=== PATIENT | male | born 1995 | race Caucasian/White ===

== ENCOUNTER 2022-11-20 14:41 | Inpatient (IN) | payer MEDICAID ==
[~2022-11-20] VITALS: Ht 167.6 cm; Wt 60.8 kg
[2022-11-20 20:28] VITALS: BP 131/68
[2022-11-20] MEDS: LORazepam 2 MG TABLET PO PRN (20:32)
[2022-11-20 21:06] LABS: GLUCOMETER DEV NAME(LOC) POC.BV
[2022-11-21 04:58] VITALS: BP 131/68
[2022-11-21] MEDS: HALOPERIDOL 5 MG TABLET PO PRN ×2 (08:06→20:43)
[2022-11-21] MEDS: LORazepam 2 MG TABLET PO PRN ×2 (08:06→19:41)
[2022-11-21 08:35] VITALS: BP 122/78
[2022-11-21 08:43] LABS: BASOPHILS % (AUTO) 0.5 % (0.0-2.0); EOSINOPHILS % (AUTO) 1.4 % (1.0-6.0); HEMATOCRIT 40.9 % (41-53); HEMOGLOBIN 14.1 g/dL (13.5-17.5); LYMPHOCYTES % (AUTO) 31.6 % (22.0-44.0); MEAN CORPUSCULAR HEMOGLOBIN 30.3 pg (26.0-34.0); MEAN CORPUSCULAR HGB CONC 34.4 G/dL (31.0-37.0); MEAN CORPUSCULAR VOLUME 88 fL (80-100); MONOCYTES # (AUTO) 0.5 K/uL (0.1-1.0); NEUTROPHILS # (AUTO) 3.7 K/uL (1.8-7.7); NEUTROPHILS % (AUTO) 58.5 % (40.0-70.0); PLATELET COUNT (AUTO) 239 K/uL (150-450); RED BLOOD CELL COUNT(AUTO) 4.64 MIL/uL (4.50-5.90); RED CELL DISTRIBUTION WIDTH 14.1 % (11.5-14.5)
[2022-11-21 09:07] LABS: HEMOGLOBIN A1C 5.1 % (3.8-5.6)
[2022-11-21 09:12] LABS: ALANINE AMINOTRANSFERASE 32 U/L (12-78); ALBUMIN 3.9 g/dL (3.4-5.0); ALKALINE PHOSPHATASE 53 U/L (46-116); ANION GAP 7 mmol/L (8-16); ASPARTATE AMINOTRANSFERASE 19 U/L (15-37); BILIRUBIN,TOTAL 0.6 mg/dL (0.1-1.0); CALCIUM, TOTAL 8.8 mg/dL (8.8-10.5); CARBON DIOXIDE 29 mmol/L (22-29); CHLORIDE 103 mmol/L (98-107); CHOL/HDL RATIO 3.4 (4.2-7.3); CHOLESTEROL 135 mg/dL (131-200); CREATININE 0.72 mg/dL (0.60-1.30); FREE T4 (FREE THYROXINE) 1.56 ng/dL (0.76-1.46); GLOMERULAR FILTR. RATE CALC > 60 mL/min (>60); GLUCOSE,RANDOM 88 mg/dL (70-110); HDL CHOLESTEROL 40 mg/dL (40-60); LDL CHOL (CALC.) 82 mg/dL (0-130); POTASSIUM 3.1 mmol/L (3.5-5.1); SODIUM SERUM 139 mmol/L (136-145); THYROID STIMULATING HORMONE 2.19 uIU/mL (0.36-3.74); TOTAL PROTEIN, SERUM 7.8 g/dL (6.4-8.2); TRIGLYCERIDES 65 mg/dL (15-150); UREA NITROGEN, BLOOD 13 mg/dL (7-18)
[2022-11-21] MEDS ORDERED: BACITRACIN 28 GM OINTMENT TP PRN (09:15)
[2022-11-21] MEDS ORDERED: DOCUSATE SODIUM 100 MG CAPSULE PO PRN (09:15)
[2022-11-21] MEDS ORDERED: LOPERAMIDE HCL 2 MG CAPSULE PO PRN (09:15)
[2022-11-21] MEDS ORDERED: OMEPRAZOLE 20 MG CAPSULE PO PRN (09:15)
[2022-11-21] MEDS ORDERED: PETROLATUM,WHITE 28 GM JELLY TP PRN (09:15)
[2022-11-21] MEDS ORDERED: ACETAMINOPHEN 325 MG TABLET PO PRN (09:15)
[2022-11-21] MEDS ORDERED: CloNIDine HCL 0.1 MG TABLET PO PRN (09:15)
[2022-11-21] MEDS ORDERED: MAGNESIUM HYDROXIDE SUSPENSION 30 ML UDCUP PO PRN (09:15)
[2022-11-21] MEDS ORDERED: ALBUTEROL SULFATE HFA 90 MCG/PUFF 8 GM INHALER IH PRN (09:15)
[2022-11-21] MEDS ORDERED: MAG HYDROX/AL HYDROX/SIMETH ES 30 ML SUSPENSION UDCUP PO PRN (09:15)
[2022-11-21] MEDS ORDERED: ONDANSETRON HCL 4 MG TABLET PO PRN (09:15)
[2022-11-21] MEDS: IBUPROFEN 600 MG TABLET PO PRN ×2 (11:49→19:41)
[2022-11-21 20:15] VITALS: BP 111/72
[2022-11-21] MEDS: ZOLPIDEM TARTRATE 10 MG TABLET PO PRN (20:43)
[2022-11-22] MEDS ORDERED: POTASSIUM CHLORIDE 20 MEQ ER TABLET PO ONE
[2022-11-22] MEDS: HALOPERIDOL 5 MG TABLET PO PRN ×3 (05:33→15:05)
[2022-11-22] MEDS: LORazepam 2 MG TABLET PO PRN ×3 (05:34→15:05)
[2022-11-22 05:55] VITALS: BP 123/67
[2022-11-22] MEDS: IBUPROFEN 600 MG TABLET PO PRN ×2 (05:55→13:18)
[2022-11-22 08:10] LABS: APPEARANCE,URINE CLEAR (CLEAR); BILIRUBIN,URINE NEGATIVE (NEGATIVE); GLUCOSE, URINE (UA) NEGATIVE (NEGATIVE); KETONES,URINE NEGATIVE (NEGATIVE); LEUKOCYTE ESTERASE ,URINE NEGATIVE (NEGATIVE); NITRATE,URINE NEGATIVE (NEGATIVE); OCCULT BLOOD,URINE NEGATIVE (NEGATIVE); PH,URINE 6.5 (5.0-8.0); PROTEIN,URINE NEGATIVE (NEGATIVE); SPECIFIC GRAVITIY, URINE 1.008 (1.003-1.030); UROBILINOGEN,URINE <=1.0 mg/dL (<=1.0)
[2022-11-22 08:17] LABS: AMPHET/METH SCREEN,URINE NEGATIVE (NEGATIVE); BARBITURATE SCREEN, URINE NEGATIVE (NEGATIVE); BENZODIAZEPINES SCREEN,URINE NEGATIVE (NEGATIVE); CANNABINOID SCREEN,URINE POSITIVE (NEGATIVE); COCAINE SCREEN,URINE NEGATIVE (NEGATIVE); METHADONE SCREEN, URINE NEGATIVE (NEGATIVE); OPIATE SCREEN,URINE NEGATIVE (NEGATIVE); PHENCYCLIDINE SCREEN,URINE NEGATIVE (NEGATIVE)
[2022-11-22 08:51] VITALS: BP 121/70
[2022-11-22] MEDS: DIVALPROEX SODIUM 500 MG DR TABLET PO SCH (16:41)
[2022-11-22] MEDS: RisperiDONE 2 MG TABLET PO SCH (16:41)
[2022-11-22 20:33] VITALS: BP 114/81
[2022-11-22] MEDS: ZOLPIDEM TARTRATE 10 MG TABLET PO PRN (20:44)
[2022-11-23 04:41] VITALS: BP 119/97
[2022-11-23] MEDS: LORazepam 2 MG TABLET PO PRN ×3 (04:50→22:25)
[2022-11-23] MEDS: IBUPROFEN 600 MG TABLET PO PRN ×2 (04:51→22:25)
[2022-11-23] MEDS: HALOPERIDOL 5 MG TABLET PO PRN ×2 (04:51→22:25)
[2022-11-23] MEDS: DIVALPROEX SODIUM 500 MG DR TABLET PO SCH ×2 (09:14→16:47)
[2022-11-23] MEDS: RisperiDONE 2 MG TABLET PO SCH ×2 (09:14→16:47)
[2022-11-23 20:48] VITALS: BP 101/69
[2022-11-23] MEDS: ZOLPIDEM TARTRATE 10 MG TABLET PO PRN (21:45)
[2022-11-24] MEDS: HALOPERIDOL 5 MG TABLET PO PRN (04:44)
[2022-11-24] MEDS: LORazepam 2 MG TABLET PO PRN ×2 (04:44→20:49)
[2022-11-24] MEDS: IBUPROFEN 600 MG TABLET PO PRN ×2 (04:44→11:27)
[2022-11-24 08:15] VITALS: BP 113/70
[2022-11-24] MEDS: DIVALPROEX SODIUM 500 MG DR TABLET PO SCH ×2 (08:39→16:35)
[2022-11-24] MEDS: RisperiDONE 2 MG TABLET PO SCH (08:39)
[2022-11-24] MEDS ORDERED: LORazepam 2 MG/ML VIAL ONE (13:18)
[2022-11-24] MEDS ORDERED: DiphenhydrAMINE HCL 50 MG/ML VIAL ONE (13:18)
[2022-11-24] MEDS ORDERED: HALOPERIDOL LACTATE 5 MG/ML VIAL ONE (13:18)
[2022-11-24] MEDS ORDERED: HALOPERIDOL LACTATE 5 MG/ML VIAL IM ONE (13:45)
[2022-11-24] MEDS ORDERED: DiphenhydrAMINE HCL 50 MG/ML VIAL IM ONE (13:45)
[2022-11-24] MEDS ORDERED: LORazepam 2 MG/ML VIAL IM ONE (13:45)
[2022-11-24] MEDS: RisperiDONE 3 MG TABLET PO SCH (16:35)
[2022-11-24] MEDS: ZOLPIDEM TARTRATE 10 MG TABLET PO PRN (20:49)
[2022-11-24 21:03] VITALS: BP 113/69
[2022-11-25] MEDS: IBUPROFEN 600 MG TABLET PO PRN (00:47)
[2022-11-25] MEDS: LORazepam 2 MG TABLET PO PRN ×2 (05:43→16:25)
[2022-11-25] MEDS: RisperiDONE 3 MG TABLET PO SCH ×2 (08:54→16:24)
[2022-11-25] MEDS: DIVALPROEX SODIUM 500 MG DR TABLET PO SCH ×2 (08:54→16:24)
[2022-11-25 10:11] VITALS: BP 118/68
[2022-11-25] MEDS: HALOPERIDOL 5 MG TABLET PO PRN (16:25)
[2022-11-25] MEDS: ZOLPIDEM TARTRATE 10 MG TABLET PO PRN (20:10)
[2022-11-25 20:32] VITALS: BP 121/83
[2022-11-26] MEDS: HALOPERIDOL 5 MG TABLET PO PRN ×3 (01:19→16:39)
[2022-11-26] MEDS: LORazepam 2 MG TABLET PO PRN ×4 (01:19→17:50)
[2022-11-26] MEDS: IBUPROFEN 600 MG TABLET PO PRN ×2 (01:20→17:51)
[2022-11-26 01:21] VITALS: BP 128/78
[2022-11-26] MEDS: DIVALPROEX SODIUM 500 MG DR TABLET PO SCH ×2 (08:07→16:39)
[2022-11-26] MEDS: RisperiDONE 3 MG TABLET PO SCH ×2 (08:07→16:38)
[2022-11-26 08:12] VITALS: BP 118/76
[2022-11-26 17:31] LABS: GLUCOMETER DEV NAME(LOC) POC.BV
[2022-11-26 20:15] VITALS: BP 109/62
[2022-11-27] MEDS: DIVALPROEX SODIUM 500 MG DR TABLET PO SCH ×2 (08:01→16:07)
[2022-11-27] MEDS: RisperiDONE 3 MG TABLET PO SCH ×2 (08:01→16:07)
[2022-11-27 08:11] VITALS: BP 122/61
[2022-11-27] MEDS: IBUPROFEN 600 MG TABLET PO PRN (16:08)
[2022-11-27] MEDS: LORazepam 2 MG TABLET PO PRN (17:29)
[2022-11-27 20:03] VITALS: BP 126/62
[2022-11-27] MEDS: ZOLPIDEM TARTRATE 10 MG TABLET PO PRN (20:10)
[2022-11-28] MEDS: LORazepam 2 MG TABLET PO PRN ×2 (00:23→22:17)
[2022-11-28] MEDS: RisperiDONE 3 MG TABLET PO SCH ×2 (08:14→16:40)
[2022-11-28] MEDS: DIVALPROEX SODIUM 500 MG DR TABLET PO SCH ×2 (08:14→16:40)
[2022-11-28 08:44] VITALS: BP 116/63
[2022-11-28 20:10] VITALS: BP 121/77
[2022-11-28] MEDS: ZOLPIDEM TARTRATE 10 MG TABLET PO PRN (20:34)
[2022-11-29 05:41] VITALS: BP 123/67
[2022-11-29] MEDS: IBUPROFEN 600 MG TABLET PO PRN (05:43)
[2022-11-29] MEDS: LORazepam 2 MG TABLET PO PRN ×2 (06:04→16:08)
[2022-11-29] MEDS: RisperiDONE 3 MG TABLET PO SCH ×2 (08:05→16:08)
[2022-11-29] MEDS: DIVALPROEX SODIUM 500 MG DR TABLET PO SCH ×2 (08:05→16:08)
[2022-11-29 08:22] VITALS: BP 121/66
[2022-11-29 20:14] VITALS: BP 113/64
[2022-11-30] MEDS: LORazepam 2 MG TABLET PO PRN ×3 (00:12→16:03)
[2022-11-30] MEDS: ZOLPIDEM TARTRATE 10 MG TABLET PO PRN ×2 (00:12→20:13)
[2022-11-30 08:09] VITALS: BP 129/71
[2022-11-30] MEDS: DIVALPROEX SODIUM 500 MG DR TABLET PO SCH ×2 (08:09→16:03)
[2022-11-30] MEDS: RisperiDONE 3 MG TABLET PO SCH ×2 (08:09→16:03)
[2022-11-30] MEDS: IBUPROFEN 600 MG TABLET PO PRN (09:08)
[2022-11-30] MEDS: HALOPERIDOL 5 MG TABLET PO PRN (12:07)
[2022-11-30 20:05] VITALS: BP 118/70
[2022-12-01] MEDS: HALOPERIDOL 5 MG TABLET PO PRN (02:38)
[2022-12-01] MEDS: LORazepam 2 MG TABLET PO PRN ×3 (02:38→20:36)
[2022-12-01] MEDS: RisperiDONE 3 MG TABLET PO SCH ×2 (08:00→16:22)
[2022-12-01] MEDS: DIVALPROEX SODIUM 500 MG DR TABLET PO SCH ×2 (08:00→16:22)
[2022-12-01 08:12] VITALS: BP 116/69
[2022-12-01] MEDS ORDERED: DIVA-112 PO (10:43)
[2022-12-01] MEDS ORDERED: RISP3TAB63 PO (10:43)
[2022-12-01 20:02] VITALS: BP 111/69
[2022-12-01] MEDS: ZOLPIDEM TARTRATE 10 MG TABLET PO PRN (20:36)
[2022-12-02] MEDS: HALOPERIDOL 5 MG TABLET PO PRN (00:40)
[2022-12-02] MEDS: LORazepam 2 MG TABLET PO PRN ×2 (00:40→08:24)
[2022-12-02 08:01] VITALS: BP 117/71
[2022-12-02] MEDS: RisperiDONE 3 MG TABLET PO SCH (08:24)
[2022-12-02] MEDS: DIVALPROEX SODIUM 500 MG DR TABLET PO SCH (08:24)
== END 2022-12-02 15:01 | disposition home or self-care (01) | DRG 750 ==
LOC: B3A 17:06
PROVIDERS: ADMIT Psychiatry & Neurology Psychiatry; ATTEND Psychiatry & Neurology Psychiatry
DX: F25.9 Schizoaffective disorder, unspecified (principal); R45.851 Suicidal ideations; Z91.148 Patient's other noncompliance with medication regimen for other reason; F41.9 Anxiety disorder, unspecified; G47.00 Insomnia, unspecified; F31.9 Bipolar disorder, unspecified; F19.10 Other psychoactive substance abuse, uncomplicated; Z20.822 Contact with and (suspected) exposure to COVID-19
CPT/HCPCS: 80053; 80061; 80164; 80307; 81003; 83036; 84132; 84436; 84439; 84443; 85025; 86592; 99285; G0480; J1200; J1630; J2060; J3535